=== PATIENT | female | born 1975 | race Caucasian/White ===

== ENCOUNTER 2017-06-20 17:22 | Emergency (ER) | payer SELFPAY ==
[~2017-06-20] VITALS: Ht 157.5 cm; Wt 64.2 kg
[2017-06-20] MEDS ORDERED: KEFLEX500 M1 PO (17:58)
[2017-06-20 18:00] VITALS: BP 151/79
== END 2017-06-20 18:00 | disposition home or self-care (01) | DRG 153 ==
LOC: ED 17:22
DX: J06.9 Acute upper respiratory infection, unspecified (principal); F17.210 Nicotine dependence, cigarettes, uncomplicated; R09.81 Nasal congestion; H92.01 Otalgia, right ear

== ENCOUNTER 2017-06-27 12:21 | Emergency (ER) | payer SELFPAY ==
[~2017-06-27] VITALS: Ht 157.5 cm; Wt 65.0 kg
[~2017-06-27 12:21] MED LIST: KEFLEX500 M1 PO
[2017-06-27] MEDS ORDERED: SUDAFED 12HR120 MG PO (12:44)
[2017-06-27] MEDS ORDERED: PREDNISONE10 MG PO (12:44)
[2017-06-27] MEDS ORDERED: AFRIN 12 HOUR0.05 % (12:44)
[2017-06-27 12:50] VITALS: BP 123/87
== END 2017-06-27 12:55 | disposition home or self-care (01) | DRG 156 ==
LOC: ED 12:21
DX: H69.93 Unspecified Eustachian tube disorder, bilateral (principal); H92.03 Otalgia, bilateral

== ENCOUNTER 2017-07-07 18:02 | Emergency (ER) | payer SELFPAY ==
[~2017-07-07] VITALS: Ht 157.5 cm; Wt 64.0 kg
[~2017-07-07 18:02] MED LIST changes: +AFRIN 12 HOUR0.05 %; +PREDNISONE10 MG PO; +SUDAFED 12HR120 MG PO
[2017-07-07] MEDS ORDERED: BACTRIM DS1 TAB PO (19:26)
[2017-07-07] MEDS ORDERED: PREDNISONE10 MG PO (19:26)
[2017-07-07 19:34] VITALS: BP 138/77
== END 2017-07-07 19:40 | disposition home or self-care (01) | DRG 603 ==
LOC: ED 18:02
DX: L03.213 Periorbital cellulitis (principal); H02.846 Edema of left eye, unspecified eyelid; H57.8 Other specified disorders of eye and adnexa

== ENCOUNTER 2017-12-15 10:30 | Emergency (ER) | payer SELFPAY ==
[~2017-12-15] VITALS: Ht 157.5 cm; Wt 66.0 kg
[~2017-12-15 10:30] MED LIST changes: +BACTRIM DS1 TAB PO
[2017-12-15] MEDS ORDERED: MEDDOSEPAK PO (10:54)
[2017-12-15] MEDS ORDERED: BACTRIM DS1 TAB PO (10:54)
[2017-12-15 11:08] VITALS: BP 141/101
== END 2017-12-15 11:14 | disposition home or self-care (01) | DRG 607 ==
LOC: ED 10:30
DX: S00.86XA Insect bite (nonvenomous) of other part of head, initial encounter (principal); S10.96XA Insect bite of unspecified part of neck, initial encounter; S80.861A Insect bite (nonvenomous), right lower leg, initial encounter; L29.9 Pruritus, unspecified; W57.XXXA Bitten or stung by nonvenomous insect and other nonvenomous arthropods, initial encounter; Y92.009 Unspecified place in unspecified non-institutional (private) residence as the place of occurrence of the external cause

== ENCOUNTER 2018-09-06 21:30 | Emergency (ER) | payer SELFPAY ==
[~2018-09-06] VITALS: Ht 157.5 cm; Wt 70.0 kg
[~2018-09-06 21:30] MED LIST changes: +MEDDOSEPAK PO
[2018-09-06 22:40] LABS: URINE BILIRUBIN - DIPSTICK NEGATIVE (NEGATIVE); URINE BLOOD DIPSTICK TRACE-LYSED (NEGATIVE); URINE GLUCOSE - DIPSTICK NEGATIVE (NEGATIVE); URINE KETONE NEGATIVE (NEGATIVE); URINE NITRITE - DIPSTICK NEGATIVE (Negative); URINE PROTEIN - DIPSTICK NEGATIVE (NEG-TRACE); URINE SPECIFIC GRAVITY <=1.005; URINE UROBILINOGEN - DIPSTICK 0.2 E.U./dL (0.2)
[2018-09-06 22:42] LABS: BARBITURATES NEGATIVE (NEGATIVE); COCAINE NEGATIVE (NEGATIVE); METHADONE NEGATIVE (NEGATIVE); OXCYCODONE NEGATIVE (NEGATIVE); TETRAHYDROCANNABIONOL NEGATIVE (NEGATIVE); TRICYLIC ANTIDEPRESSANTS NEGATIVE (NEGATIVE); URINE COLOR STRAW; URINE LEUK ESTERASE MODERATE (NEGATIVE); URINE RBC 0-2 RBC/hpf (0-5)
[2018-09-06 22:43] LABS: URINE BACTERIA FEW hpf; URINE EPITHELIAL CELLS MODERATE EPI/hpf (0-FEW)
[2018-09-06] MEDS ORDERED: ULTRAM50 M1 PO (23:51)
[2018-09-06] MEDS ORDERED: CIPROFLOXACN500 MG PO (23:51)
[2018-09-06 23:54] VITALS: BP 122/68
== END 2018-09-07 00:28 | disposition home or self-care (01) | DRG 605 ==
LOC: ED 21:30
PROVIDERS: Emergency Medicine
DX: S20.212A Contusion of left front wall of thorax, initial encounter (principal); S33.5XXA Sprain of ligaments of lumbar spine, initial encounter; N39.0 Urinary tract infection, site not specified; F17.210 Nicotine dependence, cigarettes, uncomplicated; W11.XXXA Fall on and from ladder, initial encounter; Y93.89 Activity, other specified; Y92.89 Other specified places as the place of occurrence of the external cause; Y99.0 Civilian activity done for income or pay

== ENCOUNTER 2018-10-05 19:19 | Emergency (ER) | payer SELFPAY ==
[~2018-10-05] VITALS: Ht 157.5 cm; Wt 70.0 kg
[~2018-10-05 19:19] MED LIST changes: +CIPROFLOXACN500 MG PO; +ULTRAM50 M1 PO
[2018-10-05 20:16] LABS: HEMATOCRIT 47.1 % (37.0-47.0); HEMOGLOBIN 15.8 g/dl (12.0-16.0); IMMATURE GRANULOCYTES 0.3 % (0.0-5.0); MEAN CELL VOLUME 94.4 fL CALC (80.0-100.0); MEAN CORPUSCULAR HGB 31.7 pG CALC (26.0-32.0); MEAN CORPUSCULAR HGB CONC 33.5 g/L CALC (32.0-36.0); NEUT# 3.97 thou/uL (2.00-7.15); RED BLOOD COUNT 4.99 mill/uL (4.20-5.60); RED CELL DISTRI WIDTH 13.2 % (11.5-15.5)
[2018-10-05 20:17] LABS: URINE BILIRUBIN - DIPSTICK NEGATIVE (NEGATIVE); URINE BLOOD DIPSTICK NEGATIVE (NEGATIVE); URINE COLOR YELLOW; URINE GLUCOSE - DIPSTICK NEGATIVE (NEGATIVE); URINE KETONE NEGATIVE (NEGATIVE); URINE NITRITE - DIPSTICK NEGATIVE (Negative); URINE PH 5.5 (4.5-8.0); URINE PROTEIN - DIPSTICK NEGATIVE (NEG-TRACE); URINE SPECIFIC GRAVITY <=1.005; URINE UROBILINOGEN - DIPSTICK 0.2 E.U./dL (0.2)
[2018-10-05 20:19] LABS: URINE LEUK ESTERASE SMALL (NEGATIVE)
[2018-10-05 20:21] LABS: COCAINE NEGATIVE (NEGATIVE); METHADONE NEGATIVE (NEGATIVE); TETRAHYDROCANNABIONOL NEGATIVE (NEGATIVE)
[2018-10-05 20:22] LABS: BARBITURATES NEGATIVE (NEGATIVE); OXCYCODONE NEGATIVE (NEGATIVE); TRICYLIC ANTIDEPRESSANTS NEGATIVE (NEGATIVE)
[2018-10-05 20:26] LABS: URINE RBC 0-2 RBC/hpf (0-5); URINE SQUAMOUS EPITHELIAL CELL MODERATE EPI/hpf (0-FEW)
[2018-10-05 20:33] LABS: ALBUMIN 5.2 g/dL (3.2-5.0); BILIRUBIN, TOTAL 0.3 mg/dL (0.0-1.4); BUN 8 mg/dL (7-17); BUN/CREATININE RATIO 12 (12-20 (CALC)); CHLORIDE 105 mmol/l (95-108); CREATININE 0.6 mg/dL (0.5-1.0); ETHYL ALCOHOL 291 mg/dl (0-30); GFR > 60 ML/MIN (>=60 (CALC)); GFR FOR AFR.AMER. > 60 ML/MIN (>=60 (CALC)); SODIUM 144 mmol/l (137-146); TOTAL PROTEIN 8.6 g/dL (6.3-8.2)
[2018-10-05 20:34] LABS: ALKALINE PHOSPHATASE 90 u/l (38-126); ANION GAP 21 (6-22 (CALC)); CARBON DIOXIDE 22 mmol/l (22-30); SGOT/AST 44 u/l (14-36)
[2018-10-05 21:09] VITALS: BP 123/75
== END 2018-10-05 21:08 | disposition home or self-care (01) | DRG 897 ==
LOC: ED 19:19
PROVIDERS: Family Medicine
DX: F10.129 Alcohol abuse with intoxication, unspecified (principal); H53.129 Transient visual loss, unspecified eye; Y90.8 Blood alcohol level of 240 mg/100 ml or more; F17.210 Nicotine dependence, cigarettes, uncomplicated

== ENCOUNTER 2019-01-07 13:45 | Emergency (ER) | payer SELFPAY ==
[~2019-01-07] VITALS: Ht 157.5 cm; Wt 69.0 kg
[2019-01-07 16:13] VITALS: BP 116/70
== END 2019-01-07 16:07 | disposition home or self-care (01) | DRG 563 ==
LOC: ED 13:45
DX: S63.591A Other specified sprain of right wrist, initial encounter (principal)

== ENCOUNTER 2019-01-21 14:29 | Emergency (ER) | payer SELFPAY ==
[~2019-01-21] VITALS: Ht 157.5 cm; Wt 66.0 kg
[2019-01-21] MEDS ORDERED: NAPROXEN500 MG PO (16:39)
[2019-01-21 17:10] VITALS: BP 128/87
== END 2019-01-21 17:10 | disposition home or self-care (01) | DRG 563 ==
LOC: ED 14:29
DX: S63.92XA Sprain of unspecified part of left wrist and hand, initial encounter (principal); F17.210 Nicotine dependence, cigarettes, uncomplicated; X58.XXXA Exposure to other specified factors, initial encounter

== ENCOUNTER 2019-06-24 17:49 | Emergency (ER) | payer SELFPAY ==
[~2019-06-24 17:49] MED LIST changes: +NAPROXEN500 MG PO
[2019-06-24 19:01] LABS: HEMATOCRIT 42.5 % (37.0-47.0); HEMOGLOBIN 14.3 g/dl (12.0-16.0); IMMATURE GRANULOCYTES 0.4 % (0.0-5.0); MEAN CORPUSCULAR HGB 31.3 pG CALC (26.0-32.0); MEAN CORPUSCULAR HGB CONC 33.6 g/dL CAL (32.0-36.0); NEUT# 4.99 thou/uL (2.00-7.15); RED BLOOD COUNT 4.57 mill/uL (4.20-5.60); RED CELL DISTRI WIDTH 12.9 % (11.5-15.5)
[2019-06-24 19:07] LABS: ALBUMIN 4.7 g/dL (3.2-5.0); ALKALINE PHOSPHATASE 84 u/l (38-126); BILIRUBIN, TOTAL 0.4 mg/dL (0.0-1.4); BUN 4 mg/dL (7-17); BUN/CREATININE RATIO 6 (12-20 (CALC)); CHLORIDE 106 mmol/l (95-108); CREATININE 0.6 mg/dL (0.5-1.0); GFR > 60 ML/MIN (>=60 (CALC)); GFR FOR AFR.AMER. > 60 ML/MIN (>=60 (CALC)); LIPASE 86 u/l (23-300); POTASSIUM 3.7 mmol/l (3.5-5.1); SGOT/AST 34 u/l (14-36); SODIUM 139 mmol/l (137-146); TOTAL PROTEIN 8.2 g/dL (6.3-8.2)
[2019-06-24 19:12] LABS: ANION GAP 21 (6-22 (CALC)); CARBON DIOXIDE 16 mmol/l (22-30)
[2019-06-24 19:46] LABS: URINE BILIRUBIN - DIPSTICK NEGATIVE (NEGATIVE); URINE BLOOD DIPSTICK NEGATIVE (NEGATIVE); URINE COLOR YELLOW; URINE GLUCOSE - DIPSTICK NEGATIVE (NEGATIVE); URINE KETONE NEGATIVE (NEGATIVE); URINE LEUK ESTERASE NEGATIVE (NEGATIVE); URINE NITRITE - DIPSTICK NEGATIVE (Negative); URINE PH 5.5 (4.5-8.0); URINE PROTEIN - DIPSTICK NEGATIVE (NEG-TRACE); URINE SPECIFIC GRAVITY <=1.005; URINE UROBILINOGEN - DIPSTICK 0.2 E.U./dL (0.2)
[2019-06-24] MEDS ORDERED: ZITHROMAX250 MG PO (21:23)
[2019-06-24 21:52] VITALS: BP 112/64
== END 2019-06-24 21:30 | disposition home or self-care (01) | DRG 153 ==
LOC: ED 17:49
DX: J02.0 Streptococcal pharyngitis (principal); R07.89 Other chest pain; F17.210 Nicotine dependence, cigarettes, uncomplicated; Z20.828 Contact with and (suspected) exposure to other viral communicable diseases

== ENCOUNTER 2020-01-16 18:29 | Emergency (ER) | payer SELFPAY ==
[~2020-01-16] VITALS: Ht 157.5 cm; Wt 66.0 kg
[~2020-01-16 18:29] MED LIST changes: +ZITHROMAX250 MG PO
[2020-01-16 19:33] LABS: URINE BILIRUBIN - DIPSTICK NEGATIVE (NEGATIVE); URINE BLOOD DIPSTICK TRACE-INTACT (NEGATIVE); URINE COLOR YELLOW; URINE GLUCOSE - DIPSTICK NEGATIVE (NEGATIVE); URINE KETONE NEGATIVE (NEGATIVE); URINE LEUK ESTERASE NEGATIVE (NEGATIVE); URINE NITRITE - DIPSTICK NEGATIVE (Negative); URINE PH 5.5 (4.5-8.0); URINE PROTEIN - DIPSTICK NEGATIVE (NEG-TRACE); URINE UROBILINOGEN - DIPSTICK 0.2 E.U./dL (0.2)
[2020-01-16] MEDS ORDERED: CYCLOBENZAPRINE10 MG PO (20:23)
[2020-01-16] MEDS ORDERED: LORTAB 1010 MG PO (20:23)
[2020-01-16 20:33] VITALS: BP 116/66
== END 2020-01-16 20:40 | disposition home or self-care (01) | DRG 552 ==
LOC: ED 18:29
PROVIDERS: Emergency Medicine
DX: M47.816 Spondylosis without myelopathy or radiculopathy, lumbar region (principal); I10 Essential (primary) hypertension; F17.210 Nicotine dependence, cigarettes, uncomplicated

== ENCOUNTER 2020-09-17 14:09 | Emergency (ER) | payer SELFPAY ==
[~2020-09-17 14:09] MED LIST changes: +CYCLOBENZAPRINE10 MG PO; +LORTAB 1010 MG PO
[2020-09-17 15:43] VITALS: BP 140/81
== END 2020-09-17 15:43 | disposition home or self-care (01) | DRG 607 ==
LOC: ED 14:09
DX: R22.0 Localized swelling, mass and lump, head (principal); R22.2 Localized swelling, mass and lump, trunk; I10 Essential (primary) hypertension; F17.200 Nicotine dependence, unspecified, uncomplicated; Z20.822 Contact with and (suspected) exposure to COVID-19

== ENCOUNTER 2021-01-26 09:30 | Emergency (ER) | payer SELFPAY ==
[~2021-01-26] VITALS: Ht 157.5 cm; Wt 68.0 kg
[2021-01-26 09:40] VITALS: BP 151/92
[2021-01-26] MEDS ORDERED: ROBITUSSIN AC10 ML PO (10:20)
[2021-01-26] MEDS ORDERED: VENTOLIN HFA IN (10:20)
[2021-01-26] MEDS ORDERED: ZPAK PO (10:20)
[2021-01-26] MEDS ORDERED: TOBREX OPTH5 ML/BTL OU (10:20)
== END 2021-01-26 10:52 | disposition home or self-care (01) | DRG 203 ==
LOC: ED 09:30
DX: J40 Bronchitis, not specified as acute or chronic (principal); H10.9 Unspecified conjunctivitis; I10 Essential (primary) hypertension; F17.210 Nicotine dependence, cigarettes, uncomplicated; Z20.822 Contact with and (suspected) exposure to COVID-19

== ENCOUNTER 2021-11-24 11:04 | Emergency (ER) | payer SELFPAY ==
[~2021-11-24] VITALS: Ht 162.6 cm; Wt 65.0 kg
[~2021-11-24 11:04] MED LIST changes: +PREDNISONE50 MG PO; +ROBITUSSIN AC10 ML PO; +TOBREX OPTH5 ML/BTL OU; +VENTOLIN HFA IN; +ZPAK PO
[2021-11-24 14:11] VITALS: BP 110/69
== END 2021-11-24 12:40 | disposition left against medical advice (07) | DRG 951 ==
LOC: ED 11:04 → LWOBS 12:39
DX: Z53.21 Procedure and treatment not carried out due to patient leaving prior to being seen by health care provider (principal)

== ENCOUNTER 2022-09-17 14:33 | Emergency (ER) | payer SELFPAY ==
[2022-09-17] VITALS (13 sets, daily range): BP systolic 114–129; BP diastolic 80–97
[~2022-09-17] VITALS: Ht 162.6 cm; Wt 69.1 kg
[2022-09-17 17:17] LABS: BASO% 0.2 % (0-3); EOS% 2.4 % (0-8); HEMATOCRIT 45.8 % (37.0-47.0); HEMOGLOBIN 15.4 g/dl (12.0-16.0); IMMATURE GRANULOCYTES 0.4 % (0.0-5.0); LYMPH% 36.4 % (15-41); MEAN CELL VOLUME 96.8 fL CALC (80.0-100.0); MEAN CORPUSCULAR HGB 32.6 pG CALC (26.0-32.0); MEAN CORPUSCULAR HGB CONC 33.6 g/dL CAL (32.0-36.0); MONO% 5.2 % (2-13); NEUT# 4.56 thou/uL (2.00-7.15); NEUT% 55.4 % (42-76); RED BLOOD COUNT 4.73 mill/uL (4.20-5.60); RED CELL DISTRI WIDTH 12.4 % (11.5-15.5)
[2022-09-17 17:49] LABS: ALBUMIN 4.7 g/dL (3.2-5.0); ALKALINE PHOSPHATASE 80 u/l (38-126); ANION GAP 18 (6-22 (CALC)); BILIRUBIN, TOTAL 0.4 mg/dL (0.02-1.3); BUN 6 mg/dL (7-17); BUN/CREATININE RATIO 9 (12-20 (CALC)); C-REACTIVE PROTEIN 0.6 mg/dL (0-0.9); CARBON DIOXIDE 18 mmol/l (22-30); CHLORIDE 107 mmol/l (95-108); CREATININE 0.6 mg/dL (0.5-1.0); GFR FOR AFR.AMER. > 60 ML/MIN (>=60 (CALC)); GFR OTHER RACES > 60 ML/MIN (>=60 (CALC)); POTASSIUM 4.2 mmol/l (3.5-5.1); SGOT/AST 25 u/l (14-36); SODIUM 140 mmol/l (137-146); TOTAL PROTEIN 7.8 g/dL (6.3-8.2)
[2022-09-17] MEDS ORDERED: MUPIROCIN21 TOP (19:08)
== END 2022-09-17 19:24 | disposition home or self-care (01) | DRG 556 ==
LOC: ED 14:33
PROVIDERS: Family Medicine
DX: M25.561 Pain in right knee (principal); S70.311A Abrasion, right thigh, initial encounter; L08.9 Local infection of the skin and subcutaneous tissue, unspecified; I10 Essential (primary) hypertension; F17.210 Nicotine dependence, cigarettes, uncomplicated; W54.8XXA Other contact with dog, initial encounter

== ENCOUNTER 2024-03-20 14:18 | Emergency (ER) | payer SELFPAY ==
[~2024-03-20] VITALS: Ht 162.6 cm; Wt 63.5 kg
[~2024-03-20 14:18] MED LIST changes: +MUPIROCIN21 TOP
[2024-03-20 14:24] VITALS: BP 153/93
[2024-03-20 14:30] VITALS: BP 160/95
[2024-03-20] MEDS ORDERED: IPRATROPIUM-Albuterol 0.5MG-2.5MG/3 ML NEB ONE (14:40)
[2024-03-20] MEDS ORDERED: PREDNISONE20 MG PO ×2 (16:38→16:56)
[2024-03-20] MEDS ORDERED: PROAIR HFA IN (16:38)
[2024-03-20] MEDS ORDERED: VIBRAMYCIN100 M2 PO ×2 (16:38→16:56)
[2024-03-20] MEDS ORDERED: ALLERGY RE50 MCG/ACT ×2 (16:38→16:56)
[2024-03-20] MEDS ORDERED: LEVOCETIRIZINE D5 MG PO (16:38)
[2024-03-20 16:42] VITALS: BP 153/93
[2024-03-20] MEDS ORDERED: ALBUTEROL SULFATE 8 GM INH INHW/SPAC ONE (16:50)
[2024-03-20] MEDS ORDERED: ZYRTEC10 MG PO (16:57)
== END 2024-03-20 16:57 | disposition home or self-care (01) | DRG 153 ==
LOC: ED 14:18
DX: J32.9 Chronic sinusitis, unspecified (principal); H65.91 Unspecified nonsuppurative otitis media, right ear; I10 Essential (primary) hypertension; F17.200 Nicotine dependence, unspecified, uncomplicated; Z20.822 Contact with and (suspected) exposure to COVID-19
CPT/HCPCS: J1100